=== PATIENT | female | born 1990 | race American Indian/Alaskan Native ===

== ENCOUNTER 2016-08-11 17:21 | Emergency (ER) | payer SELFPAY ==
--- NOTE | 2016-08-11 18:25 | Emergency Department Report ---
Chief Complaint: Headache Stated Complaint: HEADACHE Time Seen by Provider: 08/11/16 18:16 - HPI History of Present Illness: 26-year-old Taj[place] female comes in complaining of headache that started last week after she pulled the car garage door on her head. Patient ports that she did have LOC. Stated that she passed out yesterday while at work states she is still having some dizziness. - Exam Vital Signs: Vital Signs 08/11/16 18:03 Temperature 98.7 F Pulse Rate 86 Respiratory 18 Rate Blood Pressure 115/80 O2 Sat by Pulse 98 Oximetry Physical Exam: Patient is alert and oriented 3 cardiovascular S1-S2 regular rate and rhythm respiratory clear to resuscitation bilateral Neuro: Patient able to protrude her tongue satisfied no nystagmus shrugging of the shoulders gag reflex is intact strength bilateral symmetrical 4 out of 5 EOMI, PERRLA, Romberg negative, heel to kumar intact. MSE screening note: Focused history and physical exam performed. Due to findings the following was ordered: ED Disposition for MSE Condition: Stable
[2016-08-11 21:13] LABS: Basophils % (Auto) 0.4 % (0.0-1.8); Eosinophils % (Auto) 1.5 % (0.0-4.3); Hematocrit 39.2 % (30.3-42.9); Hemoglobin 12.3 gm/dl (10.1-14.3); Mean Corpuscular HGB Conc 32 % (30-34); Mean Corpuscular Hemoglobin 26 pg (28-32); Mean Corpuscular Volume 83 fl (79-97); Platelet Count 288 K/mm3 (140-440); Red Blood Count 4.72 M/mm3 (3.65-5.03); Red Cell Distribution Width 15.1 % (13.2-15.2); White Blood Count 7.5 K/mm3 (4.5-11.0)
[2016-08-11 21:17] LABS: Anion Gap 16 mmol/L; BUN/Creatinine Ratio 15.71; Blood Urea Nitrogen 11 mg/dL (7-17); Calcium 9.2 mg/dL (8.4-10.2); Carbon Dioxide 26 mmol/L (22-30); Chloride 101.1 mmol/L (98-107); Glucose 83 mg/dL (65-100); Sodium 139 mmol/L (137-145)
--- NOTE | 2016-08-12 06:21 | Emergency Department Report ---
ED Headache HPI - General Chief Complaint: Headache Stated Complaint: HEADACHE Time Seen by Provider: 08/11/16 18:16 Source: patient - History of Present Illness Initial Comments: Patient complains of an anterior bifrontal headache. She states this occurred after the garage door hit her head one week ago. She claims that she had a loss of consciousness but did not seek out medical evaluation. He also stated that she felt faint at work. He did not pass out yesterday. He states that her headache is mild in intensity now. She denies any neurological change. On my initial encounter, she is resting comfortably in no distress. Timing/Duration: 1 week Quality: mild, moderate Head Injury Location: frontal Recent Head Trauma: head trauma > 24 hrs ago Associated Symptoms: denies symptoms (except as above) Allergies/Adverse Reactions: Allergies Sulfa (Sulfonamide Antibiotics) Allergy (Verified 12/05/13 15:08) Rash Home Medications: Ambulatory Orders Amoxicillin/K Clav Tab [Augmentin 875MG] 1 tab PO BID 10 Days 04/24/14 Docusate Sodium [Colace CAP] 100 mg PO Q12H PRN #60 capsule 04/24/14 Ferrous Sulfate [Feosol 325 MG tab] 325 mg PO TID #180 tablet 04/24/14 HYDROcodone/APAP 5-325 [[place] 5-325 mg TAB] 1 each PO Q6H PRN #20 tablet Ferrous Sulfate [Feosol 325 MG tab] 325 mg PO TID #90 tablet 06/02/14 Ibuprofen [Motrin 800 MG tab] 800 mg PO Q8H PRN #90 tablet 06/02/14 oxyCODONE /ACETAMINOPHEN [Percocet 5/325 mg] 1 tab PO Q6HR PRN #30 tablet Butalb/Acetaminophen/Caffeine [Fioricet 50-300-40 mg CAP] 1 cap PO Q6HR PRN #10 cap 08/12/16 ED Review of Systems ROS: Stated complaint: HEADACHE Other details as noted in HPI Constitutional: denies: chills, fever Eyes: denies: eye pain, eye discharge, vision change ENT: denies: ear pain, throat pain Respiratory: denies: cough, shortness of breath, wheezing Cardiovascular: denies: chest pain, palpitations Endocrine: no symptoms reported Gastrointestinal: denies: abdominal pain, nausea, diarrhea Genitourinary: denies: urgency, dysuria, discharge Musculoskeletal: denies: back pain, joint swelling, arthralgia Skin: denies: rash, lesions Neurological: headache. denies: weakness, numbness, paresthesias, confusion, abnormal gait, vertigo Psychiatric: denies: anxiety, depression Hematological/Lymphatic: denies: easy bleeding, easy bruising ED Past Medical Hx - Past Medical History Hx Hypertension: No Hx Congestive Heart Failure: No Hx Diabetes: No Hx Deep Vein Thrombosis: No Hx Renal Disease: No Hx Sickle Cell Disease: No Hx Seizures: No Hx Asthma: No Hx COPD: No Hx HIV: No Additional medical history: hypothyroid - Surgical History Additional Surgical History: c sectionx2 - Social History Smoking Status: Never Smoker Substance Use Type: None - Medications Home Medications: Home Medications Medication Instructions Recorded Confirmed Last Taken Type Amoxicillin/K Clav Tab [Augmentin 1 tab PO BID 10 Days 04/24/14 06/02/14 Unknown Rx 875MG] Docusate Sodium [Colace CAP] 100 mg PO Q12H PRN #60 capsule 04/24/14 06/02/14 08:00 Rx Ferrous Sulfate [Feosol 325 MG tab] 325 mg PO TID #180 tablet 04/24/14 06/02/14 05/31/14 08:00 Rx HYDROcodone/APAP 5-325 [[place] 1 each PO Q6H PRN #20 tablet 04/24/14 06/02/1408/10 Rx 5-325 mg TAB] Ferrous Sulfate [Feosol 325 MG tab] 325 mg PO TID #90 tablet 06/02/14 Unknown Rx Ibuprofen [Motrin 800 MG tab] 800 mg PO Q8H PRN #90 tablet 06/02/14 Unknown Rx oxyCODONE /ACETAMINOPHEN [Percocet 1 tab PO Q6HR PRN #30 tablet 06/02/14 Unknown Rx 5/325 mg] Butalb/Acetaminophen/Caffeine 1 cap PO Q6HR PRN #10 cap 08/12/16 Unknown Rx [Fioricet 50-300-40 mg CAP] ED Physical Exam - General Limitations: No Limitations General appearance: alert, in no apparent distress - Head Head exam: Present: atraumatic, normocephalic - Eye Eye exam: Present: normal appearance, PERRL, EOMI. Absent: scleral icterus - ENT ENT exam: Present: normal exam, mucous membranes moist - Neck Neck exam: Present: normal inspection. Absent: tenderness, meningismus - Respiratory Respiratory exam: Present: normal lung sounds bilaterally. Absent: respiratory distress - Cardiovascular Cardiovascular Exam: Present: regular rate, normal rhythm. Absent: systolic murmur, diastolic murmur, rubs, gallop - GI/Abdominal GI/Abdominal exam: Present: soft, normal bowel sounds. Absent: distended, tenderness, guarding, rebound, rigid - Extremities Exam Extremities exam: Present: normal inspection - Back Exam Back exam: Present: normal inspection - Neurological Exam Neurological exam: Present: alert, oriented X3, CN II-XII intact. Absent: motor sensory deficit - Psychiatric Psychiatric exam: Present: normal affect, normal mood - Skin Skin exam: Present: warm, dry, intact, normal color. Absent: rash ED Course Vital Signs 08/11/16 08/12/16 08/12/16 18:03 01:58 01:59 Temperature 98.7 F 98.7 F Pulse Rate 86 79 Pulse Rate [ Lying] Pulse Rate [ Sitting] Pulse Rate [ Standing] Respiratory 18 12 Rate Blood Pressure 115/80 Blood Pressure [Lying] Blood Pressure 145/80 [Right] Blood Pressure [Sitting] Blood Pressure [Standing] O2 Sat by Pulse 98 100 100 Oximetry 08/12/16 08/12/16 08/12/16 02:20 03:00 06:00 Temperature 97.5 F L 98.1 F Pulse Rate 67 68 Pulse Rate [ 73 Lying] Pulse Rate [ 67 Sitting] Pulse Rate [ 74 Standing] Respiratory 16 16 Rate Blood Pressure Blood Pressure 130/89 [Lying] Blood Pressure 119/76 130/89 [Right] Blood Pressure 127/86 [Sitting] Blood Pressure 133/97 [Standing] O2 Sat by Pulse 100 100 Oximetry ED Medical Decision Making - Lab Data Result diagrams: 08/11/16 19:14 08/11/16 19:14 Laboratory Results - last 24 hr 08/11/16 08/11/16 19:14 19:14 WBC 7.5 RBC 4.72 Hgb 12.3 Hct 39.2 MCV 83 MCH 26 L MCHC 32 RDW 15.1 Plt Count 288 Lymph % (Auto) 35.5 H Chambers % (Auto) 5.9 Eos % (Auto) 1.5 Baso % (Auto) 0.4 Lymph # 2.7 Chambers # 0.4 Eos # 0.1 Baso # 0.0 Seg Neutrophils % 56.7 Seg Neutrophils # 4.2 Sodium 139 Potassium 4.0 Chloride 101.1 Carbon Dioxide 26 Anion Gap 16 BUN 11 Creatinine 0.7 Estimated GFR > 60 BUN/Creatinine Ratio 15.71 Glucose 83 Calcium 9.2 - Radiology Data Radiology results: report reviewed (CT the head was normal) Critical care attestation.: If time is entered above; I have spent that time in minutes in the direct care of this critically ill patient, excluding procedure time. ED Disposition Clinical Impression: Cephalalgia Qualifiers: Headache type: unspecified Headache chronicity pattern: chronic headache Intractability: not intractable Qualified Code(s): R51 - Headache Disposition: DISCHARGED TO HOME OR SELFCARE Is pt being admited?: No Does the pt Need Aspirin: No Condition: Stable Instructions: Acute Headache (ED) Additional Instructions: Return any acute change or additional symptoms. Follow-up with primary care provider. Rx as needed for headache pain. Prescriptions: Butalb/Acetaminophen/Caffeine [Fioricet 50-300-40 mg CAP] 1 cap PO Q6HR PRN #10 cap PRN Reason: headache Referrals: PRIMARY CARE, [Primary Care Provider] - 3-5 Days Time of Disposition: 07:48
--- NOTE | 2016-08-12 06:59 | Cat Scan Report ---
FINAL REPORT PROCEDURE: CT HEAD/BRAIN WO CON TECHNIQUE: Computerized tomography of the head was performed without contrast material. HISTORY: headache COMPARISON: No prior studies are available for comparison. FINDINGS: Skull and scalp: Normal. Paranasal sinuses: There is sclerosis of the right mastoid air cells. Chronic mastoiditis is suspected.. Ventricles and subarachnoid spaces: Normal. Cerebrum: No evidence of hemorrhage, acute infarction or mass . Cerebellum and brainstem: No evidence of hemorrhage, acute infarction or mass. Vasculature: Normal. Comments: None. IMPRESSION: There is no evidence of an acute intracranial process.
[2016-08-12 08:55] VITALS: BP 123/76
== END 2016-08-12 08:54 | disposition home or self-care (01) ==
LOC: ED 17:21
DX: R51 Headache (principal); E03.9 Hypothyroidism, unspecified; Z88.2 Allergy status to sulfonamides
CPT/HCPCS: 36415; 70450; 80048; 85025

== ENCOUNTER 2019-10-24 11:59 | Emergency (ER) | payer MEDICAID ==
[2019-10-24 13:46] LABS: Eosinophils # (Auto) 0.1 K/mm3 (0.0-0.4); Eosinophils % (Auto) 1.5 % (0.0-4.3); Hematocrit 40.9 % (30.3-42.9); Hemoglobin 13.2 gm/dl (10.1-14.3); Lymphocytes # (Auto) 1.6 K/mm3 (1.2-5.4); Lymphocytes % (Auto) 37.5 % (13.4-35.0); Mean Corpuscular HGB Conc 32 % (30-34); Mean Corpuscular Volume 85 fl (79-97); Monocytes # (Auto) 0.3 K/mm3 (0.0-0.8); Monocytes % (Auto) 7.1 % (0.0-7.3); Platelet Count 238 K/mm3 (140-440); Red Blood Count 4.82 M/mm3 (3.65-5.03); Red Cell Distribution Width 15.3 % (13.2-15.2)
[2019-10-24 14:11] LABS: Alanine Aminotransferase 13 units/L (7-56); Albumin 4.6 g/dL (3.9-5); BUN/Creatinine Ratio 13; Blood Urea Nitrogen 9 mg/dL (7-17); Calcium 9.6 mg/dL (8.4-10.2); Hemolysis Index 56
[2019-10-24] MEDS ORDERED: ONDANSETRON 4 MG/2 ML INJ IV ONE (15:15)
[2019-10-24] MEDS ORDERED: MORPHINE 4 MG/1 ML INJ IV ONE (15:15)
[2019-10-24] MEDS ORDERED: SODIUM CHLORIDE 0.9% 1000 ML 1,000 ML IV ONE (15:15)
--- NOTE | 2019-10-24 15:21 | Emergency Department Report ---
ED Abdominal Pain HPI - General Chief Complaint: Syncope Stated Complaint: PASSED OUT TODAY/BACK AND STOMACH PAIN Time Seen by Provider: 10/24/19 15:13 Source: patient Mode of arrival: Ambulatory Limitations: No Limitations - History of Present Illness Initial Comments: This is a 29-year-old female nontoxic, well nourished in appearance, no acute signs of distress presents to the ED with c/o of nausea and vomiting and abdominal pain 3 weeks. Stated that pain radiation to flank area. Patient stated that she went to see an OBGYN and while having a blood drawn had a syncopal episode. Patient stated she became dizziness and lightheaded and then had a syncopal episode. Patient describes vomiting as food content and yellow gastric acid. Patient describes abdominal pain as cramping and aching with level of 8/10 lower abdominal area. Patient denies chest pain, short of breath, fever, hemoptysis, blood in stool, chills, headache, stiff neck, numbness or tingling. Patient denies any diarrhea or constipation. Denies any blood in stool. Patient denies any recent travels. Patient stated allergies to Sulfa. Denies any significant PMH. MD Complaint: abdominal pain, flank pain -: week(s) (3) Location: LLQ, RLQ Radiation: L flank, R flank Migration to: no migration Severity: mild Severity scale (0 -10): 8 Quality: cramping, aching Consistency: constant Improves With: nothing Worsens With: nothing Associated Symptoms: nausea, vomiting, syncope. denies: diarrhea, fever, chills, constipation, dysuria, hematemesis, hematochezia, melena, hematuria, anorexia - Related Data Previous Rx's Medication Instructions Recorded Last Taken Type Amoxicillin/K Clav Tab [Augmentin 1 tab PO BID 10 Days tablet 04/24/14 Unknown Rx 875MG] Docusate Sodium [Colace CAP] 100 mg PO Q12H PRN #60 capsule 04/24/14 05/31/14 08:00 Rx Ferrous Sulfate [Feosol 325 MG tab] 325 mg PO TID #180 tablet 04/24/14 05/31/14 08:00 Rx HYDROcodone/APAP 5-325 [[place] 1 each PO Q6H PRN #20 tablet 04/24/14 05/31/14 Rx 5-325 mg TAB] Ferrous Sulfate [Feosol 325 MG tab] 325 mg PO TID #90 tablet 06/02/14 Unknown Rx Ibuprofen [Motrin 800 MG tab] 800 mg PO Q8H PRN #90 tablet 06/02/14 Unknown Rx oxyCODONE /ACETAMINOPHEN [Percocet 1 tab PO Q6HR PRN #30 tablet 06/02/14 Unknown Rx 5/325 mg] Butalb/Acetaminophen/Caffeine 1 cap PO Q6HR PRN #10 cap 08/12/16 Unknown Rx [Fioricet 50-300-40 mg CAP] Butalb/Acetamin/Caff 50-325-40 1 tab PO Q6HR PRN #10 tab 03/25/18 Unknown Rx [Fioricet] Naproxen [Naprosyn] 500 mg PO BID #20 tablet 03/25/18 Unknown Rx Naproxen 500 mg PO Q12H PRN #12 tablet 10/24/19 Unknown Rx Nitrofurantoin [place]/M-Cryst 100 mg PO Q12HR #14 capsule 10/24/19 Unknown Rx [Macrobid CAP] Ondansetron [Zofran Odt] 4 mg PO Q8HR PRN #12 tab.rapdis 10/24/19 Unknown Rx Allergies Allergy/AdvReac Type Severity Reaction Status Date / Time Sulfa (Sulfonamide Allergy Rash Verified 10/24/19 12:08 Antibiotics) ED Review of Systems ROS: Stated complaint: PASSED OUT TODAY/BACK AND STOMACH PAIN Other details as noted in HPI Constitutional: denies: chills, fever Eyes: denies: eye pain, eye discharge, vision change ENT: denies: ear pain, throat pain Respiratory: denies: cough, shortness of breath, wheezing Cardiovascular: denies: chest pain, palpitations Endocrine: no symptoms reported Gastrointestinal: abdominal pain, nausea, vomiting. denies: diarrhea Genitourinary: denies: urgency, dysuria, discharge Musculoskeletal: denies: back pain, joint swelling, arthralgia Skin: denies: rash, lesions Neurological: denies: headache, weakness, paresthesias Psychiatric: denies: anxiety, depression Hematological/Lymphatic: denies: easy bleeding, easy bruising ED Past Medical Hx - Past Medical History Previous Medical History?: Yes Hx Hypertension: No Hx Congestive Heart Failure: No Hx Diabetes: No Hx Deep Vein Thrombosis: No Hx Renal Disease: No Hx Sickle Cell Disease: No Hx Headaches / Migraines: Yes Hx Seizures: No Hx Asthma: No Hx COPD: No Hx HIV: No Additional medical history: hypothyroid - Surgical History Past Surgical History?: Yes Additional Surgical History: c sectionx2 - Social History Smoking Status: Current Every Day Smoker Substance Use Type: None - Medications Home Medications: Home Medications Medication Instructions Recorded Confirmed Last Taken Type Amoxicillin/K Clav Tab [Augmentin 1 tab PO BID 10 Days tablet 04/24/14 06/02/14 Unknown Rx 875MG] Docusate Sodium [Colace CAP] 100 mg PO Q12H PRN #60 capsule 04/24/14 06/02/14 05/31/14 08:00 Rx Ferrous Sulfate [Feosol 325 MG tab] 325 mg PO TID #180 tablet 04/24/14 06/02/14 05/31/14 08:00 Rx HYDROcodone/APAP 5-325 [[place] 1 each PO Q6H PRN #20 tablet 04/24/14 06/02/14 05/31/14 Rx 5-325 mg TAB] Ferrous Sulfate [Feosol 325 MG tab] 325 mg PO TID #90 tablet 06/02/14 Unknown Rx Ibuprofen [Motrin 800 MG tab] 800 mg PO Q8H PRN #90 tablet 06/02/14 Unknown Rx oxyCODONE /ACETAMINOPHEN [Percocet 1 tab PO Q6HR PRN #30 tablet 06/02/14 Unknown Rx 5/325 mg] Butalb/Acetaminophen/Caffeine 1 cap PO Q6HR PRN #10 cap 08/12/16 Unknown Rx [Fioricet 50-300-40 mg CAP] Butalb/Acetamin/Caff 50-325-40 1 tab PO Q6HR PRN #10 tab 03/25/18 Unknown Rx [Fioricet] Naproxen [Naprosyn] 500 mg PO BID #20 tablet 03/25/18 Unknown Rx Naproxen 500 mg PO Q12H PRN #12 tablet 10/24/19 Unknown Rx Nitrofurantoin [place]/M-Cryst 100 mg PO Q12HR #14 capsule 10/24/19 Unknown Rx [Macrobid CAP] Ondansetron [Zofran Odt] 4 mg PO Q8HR PRN #12 tab.rapdis 10/24/19 Unknown Rx ED Physical Exam - General Limitations: No Limitations General appearance: alert, in no apparent distress - Head Head exam: Present: atraumatic, normocephalic - Eye Eye exam: Present: normal appearance - ENT ENT exam: Present: normal exam, normal orophraynx - Neck Neck exam: Present: normal inspection, full ROM. Absent: tenderness, meningismus, lymphadenopathy - Respiratory Respiratory exam: Present: normal lung sounds bilaterally. Absent: respiratory distress, wheezes, rales, rhonchi, stridor, chest wall tenderness, accessory muscle use, decreased breath sounds, prolonged expiratory - Cardiovascular Cardiovascular Exam: Present: regular rate, normal rhythm, normal heart sounds. Absent: bradycardia, tachycardia, irregular rhythm, systolic murmur, diastolic murmur, rubs, gallop - GI/Abdominal GI/Abdominal exam: Present: soft, tenderness (corin lower quads), normal bowel sounds. Absent: distended, guarding, rebound, rigid, diminished bowel sounds - Extremities Exam Extremities exam: Present: normal inspection, full ROM, normal capillary refill. Absent: tenderness - Back Exam Back exam: Present: normal inspection, full ROM. Absent: tenderness, CVA tenderness (R), CVA tenderness (L), muscle spasm, paraspinal tenderness, vertebral tenderness, rash noted - Neurological Exam Neurological exam: Present: alert, oriented X3, normal gait - Expanded Neurological Exam Expanded Patient oriented to: Present: person, place, time Cranial nerves: EOM's Intact: Normal, Facial Sensation: Normal Cerebellar function: Finger to Nose: Normal Upper motor neuron: Sensory Extinction: Normal Motor strength exam: RUE: 5, LUE: 5, RLE: 5, LLE: 5 Best Eye Response ([place]): (4) open spontaneously Best Motor Response ([place]): (6) obeys commands Best Verbal Response ([place]): (5) oriented [place] Total: 15 - Psychiatric Psychiatric exam: Present: normal affect, normal mood - Skin Skin exam: Present: warm, dry, intact, normal color. Absent: rash ED Course Vital Signs 10/24/19 10/24/19 10/24/19 12:10 16:09 16:10 Temperature 98.2 F Pulse Rate 74 66 Respiratory 16 18 18 Rate Blood Pressure 129/75 Blood Pressure 147/89 [Left] O2 Sat by Pulse 100 99 99 Oximetry - Reevaluation(s) Reevaluation #1: 10/24/19 15:22 Patient is speaking in full sentences with no signs of distress noted. ED Medical Decision Making - Lab Data Result diagrams: 10/24/19 13:08 10/24/19 13:08 Lab Results 10/24/19 10/24/19 10/24/19 Range/Units 13:08 13:08 13:08 WBC 4.3 L (4.5-11.0) K/mm3 RBC 4.82 (3.65-5.03) M/mm3 Hgb 13.2 (10.1-14.3) gm/dl Hct 40.9 (30.3-42.9) % MCV 85 (79-97) fl MCH 27 L (28-32) pg MCHC 32 (30-34) % RDW 15.3 H (13.2-15.2) % Plt Count 238 (140-440) K/mm3 Lymph % (Auto) 37.5 H (13.4-35.0) % [place] % (Auto) 7.1 (0.0-7.3) % Eos % (Auto) 1.5 (0.0-4.3) % Baso % (Auto) 1.0 (0.0-1.8) % Lymph # 1.6 (1.2-5.4) K/mm3 [place] # 0.3 (0.0-0.8) K/mm3 Eos # 0.1 (0.0-0.4) K/mm3 Baso # 0.0 (0.0-0.1) K/mm3 Seg Neutrophils % 52.9 (40.0-70.0) % Seg Neutrophils # 2.3 (1.8-7.7) K/mm3 Sodium 135 L (137-145) mmol/L Potassium 4.3 (3.6-5.0) mmol/L Chloride 100.3 (98-107) mmol/L Carbon Dioxide 23 (22-30) mmol/L Anion Gap 16 mmol/L BUN 9 (7-17) mg/dL Creatinine 0.7 (0.7-1.2) mg/dL Estimated GFR > 60 ml/min BUN/Creatinine Ratio 13 % Glucose 90 (65-100) mg/dL Calcium 9.6 (8.4-10.2) mg/dL Total Bilirubin 0.60 (0.1-1.2) mg/dL AST 23 (5-40) units/L ALT 13 (7-56) units/L Alkaline Phosphatase 44 (35-129) units/L Total Protein 8.3 H (6.3-8.2) g/dL Albumin 4.6 (3.9-5) g/dL Albumin/Globulin Ratio 1.2 % Lipase 10 L (13-60) units/L HCG, Qual Negative (Negative) - EKG Data 10/24/19 15:23 Normal sinus rhytm [address] abnormalitis. Signed and reviewed by DR. Avery V. - Medical Decision Making This is a 29-year-old female that presents with nausea, vomiting, syncope, abdominal pain. Patient is stable and was examined by me. Negative signs of symptoms of appendicitis. Labs obtained. UA obtained. EKG obtained. CT of abdomen obtained and dictated by the radiologist. Patient is notified of the report with no questions noted by the patient. Vital signs are stable prior to discharge. Patient received medical treatment in the ED which patient stated symptoms has resovled and subsided. Was instructed note to operate any machinery due to possible drowsiness and stated someone will drive the patient home. A by mouth challenge has been obtained and patient tolerated well with no nausea vomiting. Patient was notified of strict precatuions of appendictis symptoms and to return to the ED if symptoms occurs as soon as possible. Patient was also instructed to Follow-up with a primary care doctor in 3-5 days or if symptoms worsen and continue return to emergency room as soon as possible. At time of discharge, the patient does not seem toxic or ill in appearance. No acute signs of distress noted. Patient agrees to discharge treatment plan of care. No further questions noted by the patient. Critical care attestation.: If time is entered above; I have spent that time in minutes in the direct care of this critically ill patient, excluding procedure time. ED Disposition Clinical Impression: Abdominal pain Qualifiers: Abdominal location: lower abdomen, unspecified Qualified Code(s): R10.30 - Lower abdominal pain, unspecified Syncope Qualifiers: Syncope type: unspecified Qualified Code(s): R55 - Syncope and collapse Nausea & vomiting Qualifiers: Vomiting type: unspecified Vomiting Intractability: non-intractable Qualified Code(s): R11.2 - Nausea with vomiting, unspecified UTI (urinary tract infection) Qualifiers: Urinary tract infection type: site unspecified Hematuria presence: without hematuria Qualified Code(s): N39.0 - Urinary tract infection, site not specified Disposition: DC-01 TO HOME OR SELFCARE Is pt being admited?: No Does the pt Need Aspirin: No Condition: Stable Instructions: Syncope (ED), Acute Abdominal Pain (ED) Additional Instructions: Follow-up with a primary care doctor in 3-5 days or if symptoms worsen and continue return to emergency room as soon as possible. Prescriptions: Nitrofurantoin [place]/M-Cryst [Macrobid CAP] 100 mg PO Q12HR #14 capsule Naproxen 500 mg PO Q12H PRN #12 tablet PRN Reason: Pain , Severe (7-10) Ondansetron [Zofran Odt] 4 mg PO Q8HR PRN #12 tab.rapdis PRN Reason: Nausea Referrals: PRIMARY MD JUVE [Primary Care Provider] - 3-5 Days DIAZ LANDEROS MD [Staff Physician] - 3-5 Days [facility] [Provider Group] - 3-5 Days Forms: Work/School Release Form(ED)
--- NOTE | 2019-10-24 17:32 | Cat Scan Report ---
CT BRAIN: 10/24/2019 INDICATION / CLINICAL INFORMATION: headache w/ syncope. COMPARISON: 03/25/2018 FINDINGS: BRAIN/INTRACRANIAL STRUCTURES: Unenhanced CT images of the brain were obtained . There is no evidence of acute abnormality. Ventricles and sulci are normal in size and shape. There is no evidence of hemorrhage or mass. There are no abnormal extra-axial fluid collections. EXTRACRANIAL STRUCTURES: Unremarkable. IMPRESSION: Negative unenhanced CT of the brain. No change when compared to 03/25/[address] scans at this location are performed using dose reduction to ALARA by means of automated expos ure control. Signer Name: Milton Covarrubias MD Signed: 10/24/2019 5:27 PM Workstation Name: [id number]
[2019-10-24 18:03] LABS: Bilirubin,Urine NEG (Negative); Blood,Urine NEG (Negative); Color,Urine Yellow (Yellow); Mucus,Urine 2+ /HPF; Protein,Urine <15 mg/dL mg/dL (Negative); Urobilinogen,Urine < 2.0 mg/dL (<2.0); WBC,Urine < 1.0 /HPF (0.0-6.0)
--- NOTE | 2019-10-24 18:09 | Cat Scan Report ---
CT abdomen pelvis w con INDICATION: abdominal pain. TECHNIQUE: All CT scans at this location are performed using CT dose reduction for ALARA by means of automated e xposure control. COMPARISON: None available. FINDINGS: Lung bases are clear of active disease. Liver, gallbladder, spleen, pancreas, kidneys and adrenals ar e negative. Abdominal aorta is normal in size. No adenopathy. Pelvis Uterus and ovaries are grossly negative. Urinary bladder is mostly collapsed but appears unremarkable . No free fluid or inflammation. Appendix is thought to be identified and normal. No skeletal lesions. IMPRESSION: 1. No significant abnormality. Signer Name: Jimi Minor MD Signed: 10/24/2019 6:05 PM Workstation Name: [id number]
[2019-10-24 18:46] VITALS: BP 124/93
== END 2019-10-24 18:47 | disposition home or self-care (01) ==
LOC: ED 11:59
DX: N39.0 Urinary tract infection, site not specified (principal); R11.2 Nausea with vomiting, unspecified; R42 Dizziness and giddiness; R10.32 Left lower quadrant pain; G43.909 Migraine, unspecified, not intractable, without status migrainosus; F17.200 Nicotine dependence, unspecified, uncomplicated; Z98.890 Other specified postprocedural states; Z79.1 Long term (current) use of non-steroidal anti-inflammatories (NSAID); Z79.2 Long term (current) use of antibiotics; Z79.899 Other long term (current) drug therapy; Z88.2 Allergy status to sulfonamides
CPT/HCPCS: 36415; 70450; 74177; 80053; 81001; 83690; 84484; 84703; 85025; 93005; 96361; 96374; 99284; J2405; J7030; Q9967; J2270

== ENCOUNTER 2019-11-14 14:16 | Emergency (ER) | payer MEDICAID ==
[2019-11-14] MEDS ORDERED: ONDANSETRON 4 MG/2 ML INJ IV ONE (14:36)
[2019-11-14] MEDS ORDERED: MORPHINE 4 MG/1 ML INJ IV ONE (14:36)
--- NOTE | 2019-11-14 14:42 | Emergency Department Report ---
ED Headache HPI - General Stated Complaint: HEADACHE/LIGHTHEADED Time Seen by Provider: 11/14/19 14:35 Source: patient, EMS - History of Present Illness Initial Comments: Patient is 29 years old female with history of chronic headache. Patient presented to the ER via EMS from home after she experienced sudden onset of headache. Patient described her pain as global throbbing in nature that radiated down to her neck. Patient denied any fever or chills. She denied any weakness numbness or tingling sensation. No bowel or bladder incontinence. Patient also denied any chest pain or shortness of breath. Timing/Duration: 1 hour Quality: moderate Head Injury Location: global Recent Head Trauma: no recent headache/trauma, chronic headaches Allergies/Adverse Reactions: Allergies Sulfa (Sulfonamide Antibiotics) Allergy (Verified 10/24/19 12:08) Rash Home Medications: Ambulatory Orders Amoxicillin/K Clav Tab [Augmentin 875MG] 1 tab PO BID 10 Days tablet 04/24/14 Docusate Sodium [Colace CAP] 100 mg PO Q12H PRN #60 capsule 04/24/14 Ferrous Sulfate [Feosol 325 MG tab] 325 mg PO TID #180 tablet 04/24/14 HYDROcodone/APAP 5-325 [[place] 5-325 mg TAB] 1 each PO Q6H PRN #20 tablet 04/24/14 Ferrous Sulfate [Feosol 325 MG tab] 325 mg PO TID #90 tablet 06/02/14 Ibuprofen [Motrin 800 MG tab] 800 mg PO Q8H PRN #90 tablet 06/02/14 oxyCODONE /ACETAMINOPHEN [Percocet 5/325 mg] 1 tab PO Q6HR PRN #30 tablet 06/02/14 Butalb/Acetaminophen/Caffeine [Fioricet 50-300-40 mg CAP] 1 cap PO Q6HR PRN #10 cap 08/12/16 Butalb/Acetamin/Caff 50-325-40 [Fioricet] 1 tab PO Q6HR PRN #10 tab 03/25/18 Naproxen [Naprosyn] 500 mg PO BID #20 tablet 03/25/18 Naproxen 500 mg PO Q12H PRN #12 tablet 10/24/19 Nitrofurantoin [place]/M-Cryst [Macrobid CAP] 100 mg PO Q12HR #14 capsule 10/24/19 Ondansetron [Zofran Odt] 4 mg PO Q8HR PRN #12 tab.rapdis 10/24/19 ED Review of Systems ROS: Stated complaint: HEADACHE/LIGHTHEADED Other details as noted in HPI Comment: All other systems reviewed and negative Constitutional: denies: chills, diaphoresis Respiratory: denies: cough, shortness of breath, SOB with exertion, SOB at rest, wheezing Cardiovascular: denies: chest pain, palpitations Gastrointestinal: denies: abdominal pain, nausea, vomiting, diarrhea, constipation, hematemesis, melena, hematochezia Genitourinary: denies: urgency, dysuria, frequency, hematuria, discharge, abnormal menses Musculoskeletal: denies: back pain Neurological: headache. denies: weakness, numbness, paresthesias, confusion, abnormal gait Psychiatric: denies: visual hallucinations ED Past Medical Hx - Past Medical History Hx Hypertension: No Hx Congestive Heart Failure: No Hx Diabetes: No Hx Deep Vein Thrombosis: No Hx Renal Disease: No Hx Sickle Cell Disease: No Hx Headaches / Migraines: Yes Hx Seizures: No Hx Asthma: No Hx COPD: No Hx HIV: No Additional medical history: hypothyroid - Surgical History Additional Surgical History: c sectionx2 - Social History Smoking Status: Current Every Day Smoker Substance Use Type: None - Medications Home Medications: Home Medications Medication Instructions Recorded Confirmed Last Taken Type Amoxicillin/K Clav Tab [Augmentin 1 tab PO BID 10 Days tablet 04/24/14 06/02/14 Unknown Rx 875MG] Docusate Sodium [Colace CAP] 100 mg PO Q12H PRN #60 capsule 04/24/14 06/02/14 05/31/14 08:00 Rx Ferrous Sulfate [Feosol 325 MG tab] 325 mg PO TID #180 tablet 04/24/14 06/02/14 05/31/14 08:00 Rx HYDROcodone/APAP 5-325 [[place] 1 each PO Q6H PRN #20 tablet 04/24/14 06/02/14 05/31/14 Rx 5-325 mg TAB] Ferrous Sulfate [Feosol 325 MG tab] 325 mg PO TID #90 tablet 06/02/14 Unknown Rx Ibuprofen [Motrin 800 MG tab] 800 mg PO Q8H PRN #90 tablet 06/02/14 Unknown Rx oxyCODONE /ACETAMINOPHEN [Percocet 1 tab PO Q6HR PRN #30 tablet 06/02/14 Unknown Rx 5/325 mg] Butalb/Acetaminophen/Caffeine 1 cap PO Q6HR PRN #10 cap 08/12/16 Unknown Rx [Fioricet 50-300-40 mg CAP] Butalb/Acetamin/Caff 50-325-40 1 tab PO Q6HR PRN #10 tab 03/25/18 Unknown Rx [Fioricet] Naproxen [Naprosyn] 500 mg PO BID #20 tablet 03/25/18 Unknown Rx Naproxen 500 mg PO Q12H PRN #12 tablet 10/24/19 Unknown Rx Nitrofurantoin [place]/M-Cryst 100 mg PO Q12HR #14 capsule 10/24/19 Unknown Rx [Macrobid CAP] Ondansetron [Zofran Odt] 4 mg PO Q8HR PRN #12 tab.rapdis 10/24/19 Unknown Rx ED Physical Exam - General General appearance: alert, in no apparent distress - Head Head exam: Present: atraumatic, normocephalic, normal inspection - Eye Eye exam: Present: normal appearance, PERRL - ENT ENT exam: Present: normal exam, normal orophraynx, mucous membranes moist - Neck Neck exam: Present: normal inspection, tenderness, full ROM. Absent: meningismus, lymphadenopathy, thyromegaly - Respiratory Respiratory exam: Present: normal lung sounds bilaterally - Cardiovascular Cardiovascular Exam: Present: regular rate, normal rhythm, normal heart sounds - GI/Abdominal GI/Abdominal exam: Present: soft, normal bowel sounds. Absent: distended, tenderness, guarding, rebound, rigid, organomegaly, mass, bruit, pulsatile mass, hernia - Extremities Exam Extremities exam: Present: normal inspection, full ROM, normal capillary refill. Absent: pedal edema, calf tenderness - Back Exam Back exam: Present: normal inspection, full ROM. Absent: CVA tenderness (R), CVA tenderness (L) - Neurological Exam Neurological exam: Present: alert, oriented X3, CN II-XII intact, normal gait, reflexes normal - Psychiatric Psychiatric exam: Present: normal mood - Skin Skin exam: Present: warm, intact, normal color ED Course Vital Signs 11/14/19 11/14/19 11/14/19 14:32 14:40 14:46 Temperature 98.5 F Pulse Rate 102 H 73 Respiratory 15 15 Rate Blood Pressure 113/60 O2 Sat by Pulse 99 99 Oximetry ED Medical Decision Making - Lab Data Result diagrams: 11/14/19 14:54 11/14/19 14:54 - Radiology Data Radiology results: report reviewed - Medical Decision Making Patient is 29 years old female with history of chronic headache. Patient presented to the ER via EMS from home after she experienced sudden onset of headache. Patient described her pain as global throbbing in nature that radiated down to her neck. Patient denied any fever or chills. She denied any weakness numbness or tingling sensation. No bowel or bladder incontinence. Patient also denied any chest pain or shortness of breath. Patient received morphine, Toradol, Reglan and Zofran. Patient stated that she is feeling much better. Headache resolved. CT brain is negative for acute finding. Labs reviewed and is unremarkable. No clinical or laboratory evidence of meningitis. Patient advised to follow-up with her primary care physician in the next 2 to 3 days and to return to the ER if she develop any new symptoms. Critical care attestation.: If time is entered above; I have spent that time in minutes in the direct care of this critically ill patient, excluding procedure time. ED Disposition Clinical Impression: Headache Disposition: DC-01 TO HOME OR SELFCARE Is pt being admited?: No Condition: Stable Instructions: Acute Headache (ED)
[2019-11-14] MEDS ORDERED: MORPHINE 2 MG/1 ML INJ ONE (14:57)
[2019-11-14 15:22] LABS: BUN/Creatinine Ratio 14; Blood Urea Nitrogen 11 mg/dL (7-17); Calcium 9.8 mg/dL (8.4-10.2); Hemolysis Index 12
[2019-11-14 15:24] LABS: Basophils % (Auto) 0.7 % (0.0-1.8); Eosinophils % (Auto) 0.8 % (0.0-4.3); Hematocrit 36.5 % (30.3-42.9); Hemoglobin 12.2 gm/dl (10.1-14.3); Lymphocytes % (Auto) 33.5 % (13.4-35.0); Mean Corpuscular HGB Conc 33 % (30-34); Mean Corpuscular Volume 84 fl (79-97); Monocytes # (Auto) 0.4 K/mm3 (0.0-0.8); Monocytes % (Auto) 6.9 % (0.0-7.3); Platelet Count 245 K/mm3 (140-440); Red Blood Count 4.38 M/mm3 (3.65-5.03); Red Cell Distribution Width 14.9 % (13.2-15.2)
--- NOTE | 2019-11-14 15:59 | Cat Scan Report ---
CT BRAIN: 11/14/2019 INDICATION / CLINICAL INFORMATION: Headache. COMPARISON: 10/24/2019 FINDINGS: BRAIN/INTRACRANIAL STRUCTURES: Unenhanced CT images of the brain were obtained and compared to the pr ior exam from 10/24/2019. There has been no change. There is no evidence of acute abnormality. Ventricles and sulci are normal in size and shape. There is no CT evidence of acute ischemic injury, hemorrhage, or mass. There are no abnormal extra-ax ial fluid collections. EXTRACRANIAL STRUCTURES: Unremarkable. IMPRESSION: No acute abnormality. Negative unenhanced CT of the brain. All CT scans at this location are performed using dose reduction to ALARA by means of automated expos ure control. Signer Name: Milton Covarrubias MD Signed: 11/14/2019 3:54 PM Workstation Name: [id number]
[2019-11-14] MEDS ORDERED: METOCLOPRAMIDE 10 MG/2 ML INJ IV ONE (16:55)
[2019-11-14] MEDS ORDERED: KETOROLAC 30 MG/1 ML INJ IV ONE (16:55)
[2019-11-14 18:33] VITALS: BP 103/66
== END 2019-11-14 18:34 | disposition home or self-care (01) ==
LOC: ED 14:16
DX: R51 Headache (principal); F17.200 Nicotine dependence, unspecified, uncomplicated; Z79.1 Long term (current) use of non-steroidal anti-inflammatories (NSAID); Z79.899 Other long term (current) drug therapy; Z79.2 Long term (current) use of antibiotics; Z88.2 Allergy status to sulfonamides
CPT/HCPCS: 36415; 70450; 80048; 84703; 85025; 96374; 96375; 99285; J1885; J2270; J2405; J2765

== ENCOUNTER 2020-06-22 22:07 | Emergency (ER) | payer MEDICAID ==
--- NOTE | 2020-06-22 22:50 | Emergency Department Report ---
- General Chief Complaint: Sore Throat Stated Complaint: THROAT PAIN KNOT ON NECK Time Seen by Provider: 06/22/20 22:36 Source: patient Mode of arrival: Ambulatory Limitations: No Limitations - History of Present Illness Initial Comments: 30-year-old female is well department complaining of sore throat and neck discomfort and a sensation of a knot for the past couple days with no hemoptysis no hematemesis pain is worse with (which he tries to eat or drink. Reports no diarrhea no constipation no vomiting reports no chest pain reports no no headache no dizziness no ear pain no nasal congestion congestion no no pharyngeal trauma MD Complaint: sore throat -: Gradual Severity: mild, moderate Quality: dull Associated Symptoms: sore throat. denies: headache, rhinorrhea, nasal congestion, chest pain, shortness of breath, abdominal pain, confusion, right sweats, epistaxis, hoarseness, ear pain - Related Data Previous Rx's Medication Instructions Recorded Last Taken Type Amoxicillin/K Clav Tab [Augmentin 1 tab PO BID 10 Days tablet 04/24/14 Unknown Rx 875MG] Docusate Sodium [Colace CAP] 100 mg PO Q12H PRN #60 capsule 04/24/14 05/31/14 08:00 Rx Ferrous Sulfate [Feosol 325 MG tab] 325 mg PO TID #180 tablet 04/24/14 05/31/14 08:00 Rx HYDROcodone/APAP 5-325 [[place] 1 each PO Q6H PRN #20 tablet 04/24/14 05/31/14 Rx 5-325 mg TAB] Ferrous Sulfate [Feosol 325 MG tab] 325 mg PO TID #90 tablet 06/02/14 Unknown Rx Ibuprofen [Motrin 800 MG tab] 800 mg PO Q8H PRN #90 tablet 06/02/14 Unknown Rx oxyCODONE /ACETAMINOPHEN [Percocet 1 tab PO Q6HR PRN #30 tablet 06/02/14 Unknown Rx 5/325 mg] Butalb/Acetaminophen/Caffeine 1 cap PO Q6HR PRN #10 cap 08/12/16 Unknown Rx [Fioricet 50-300-40 mg CAP] Butalb/Acetamin/Caff 50-325-40 1 tab PO Q6HR PRN #10 tab 03/25/18 Unknown Rx [Fioricet] Naproxen [Naprosyn] 500 mg PO BID #20 tablet 03/25/18 Unknown Rx Naproxen 500 mg PO Q12H PRN #12 tablet 10/24/19 Unknown Rx Nitrofurantoin [place]/M-Cryst 100 mg PO Q12HR #14 capsule 10/24/19 Unknown Rx [Macrobid CAP] Ondansetron [Zofran Odt] 4 mg PO Q8HR PRN #12 tab.rapdis 10/24/19 Unknown Rx Ondansetron [Zofran Odt] 4 mg PO Q8HR PRN #10 tab.rapdis 11/14/19 Unknown Rx traMADoL [Ultram 50 MG tab] 50 mg PO Q4HR PRN #10 tablet 11/14/19 Unknown Rx Allergies Allergy/AdvReac Type Severity Reaction Status Date / Time Sulfa (Sulfonamide Allergy Rash Verified 10/24/19 12:08 Antibiotics) ED Review of Systems ROS: Stated complaint: THROAT PAIN KNOT ON NECK Other details as noted in HPI Comment: All other systems reviewed and negative ED Past Medical Hx - Past Medical History Previous Medical History?: Yes Hx Hypertension: No Hx Congestive Heart Failure: No Hx Diabetes: No Hx Deep Vein Thrombosis: No Hx Renal Disease: No Hx Sickle Cell Disease: No Hx Headaches / Migraines: Yes Hx Seizures: No Hx Asthma: No Hx COPD: No Hx HIV: No Additional medical history: hypothyroid - Surgical History Past Surgical History?: Yes Additional Surgical History: c sectionx2 - Social History Smoking Status: Current Every Day Smoker Substance Use Type: Marijuana - Medications Home Medications: Home Medications Medication Instructions Recorded Confirmed Last Taken Type Amoxicillin/K Clav Tab [Augmentin 1 tab PO BID 10 Days tablet 04/24/14 06/02/14 Unknown Rx 875MG] Docusate Sodium [Colace CAP] 100 mg PO Q12H PRN #60 capsule 04/24/14 06/02/14 05/31/14 08:00 Rx Ferrous Sulfate [Feosol 325 MG tab] 325 mg PO TID #180 tablet 04/24/14 06/02/14 05/31/14 08:00 Rx HYDROcodone/APAP 5-325 [[place] 1 each PO Q6H PRN #20 tablet 04/24/14 06/02/14 05/31/14 Rx 5-325 mg TAB] Ferrous Sulfate [Feosol 325 MG tab] 325 mg PO TID #90 tablet 06/02/14 Unknown Rx Ibuprofen [Motrin 800 MG tab] 800 mg PO Q8H PRN #90 tablet 06/02/14 Unknown Rx oxyCODONE /ACETAMINOPHEN [Percocet 1 tab PO Q6HR PRN #30 tablet 06/02/14 Unknown Rx 5/325 mg] Butalb/Acetaminophen/Caffeine 1 cap PO Q6HR PRN #10 cap 08/12/16 Unknown Rx [Fioricet 50-300-40 mg CAP] Butalb/Acetamin/Caff 50-325-40 1 tab PO Q6HR PRN #10 tab 03/25/18 Unknown Rx [Fioricet] Naproxen [Naprosyn] 500 mg PO BID #20 tablet 03/25/18 Unknown Rx Naproxen 500 mg PO Q12H PRN #12 tablet 10/24/19 Unknown Rx Nitrofurantoin [place]/M-Cryst 100 mg PO Q12HR #14 capsule 10/24/19 Unknown Rx [Macrobid CAP] Ondansetron [Zofran Odt] 4 mg PO Q8HR PRN #12 tab.rapdis 10/24/19 Unknown Rx Ondansetron [Zofran Odt] 4 mg PO Q8HR PRN #10 tab.rapdis 11/14/19 Unknown Rx traMADoL [Ultram 50 MG tab] 50 mg PO Q4HR PRN #10 tablet 11/14/19 Unknown Rx ED Physical Exam - General Limitations: No Limitations General appearance: alert, in no apparent distress - Head Head exam: Present: atraumatic, normocephalic - Eye Eye exam: Present: normal appearance, PERRL Pupils: Present: normal accommodation - ENT ENT exam: Present: normal exam, mucous membranes moist, TM's normal bilaterally, other (Pharynx red with some swelling no exudate tongue and uvula are midline airway patent) - Neck Neck exam: Present: normal inspection, full ROM, lymphadenopathy - Respiratory Respiratory exam: Present: normal lung sounds bilaterally. Absent: respiratory distress, wheezes, rales - Cardiovascular Cardiovascular Exam: Present: regular rate, normal rhythm. Absent: systolic murmur, diastolic murmur, rubs, gallop - GI/Abdominal GI/Abdominal exam: Present: soft, normal bowel sounds - Extremities Exam Extremities exam: Present: normal inspection, normal capillary refill - Back Exam Back exam: Present: normal inspection. Absent: CVA tenderness (R), CVA tenderness (L) - Neurological Exam Neurological exam: Present: alert, oriented X3, CN II-XII intact, normal gait - Psychiatric Psychiatric exam: Present: normal affect, normal mood - Skin Skin exam: Present: warm, dry, intact, normal color. Absent: rash Critical care attestation.: If time is entered above; I have spent that time in minutes in the direct care of this critically ill patient, excluding procedure time. ED Disposition Clinical Impression: Pharyngitis Disposition: DC-01 TO HOME OR SELFCARE Is pt being admited?: No Does the pt Need Aspirin: No Condition: Stable Instructions: Sore Throat, Pharyngitis, Upper Respiratory Infection, Adult, [id number] Referrals: ALENA PARK MD [Primary Care Provider] - 3-5 Days
== END 2020-06-23 00:25 | disposition home or self-care (01) ==
LOC: ED 22:07
DX: J02.9 Acute pharyngitis, unspecified (principal); G43.909 Migraine, unspecified, not intractable, without status migrainosus; E03.9 Hypothyroidism, unspecified; F17.200 Nicotine dependence, unspecified, uncomplicated; F12.90 Cannabis use, unspecified, uncomplicated; Z98.890 Other specified postprocedural states; Z88.2 Allergy status to sulfonamides; Z79.899 Other long term (current) drug therapy
CPT/HCPCS: 99282